=== PATIENT | female | born 1940 | race Asian ===

== ENCOUNTER 2018-08-09 06:27 | Day surgery (SDC) | payer MEDICARE, MEDICAID ==
[2018-08-09] MEDS ORDERED: diphenhydrAMINE 50 MG/1 ML VIAL MC ONE (06:28)
[2018-08-09] MEDS ORDERED: IV NORMAL SALINE 1000 ML BAG IV ONE (06:28)
[2018-08-09] MEDS ORDERED: ONDANSETRON 4 MG/2 ML VIAL IV ONE (06:28)
[2018-08-09] MEDS ORDERED: TROPICAMIDE 1% OPHT DROP 3 ML BOTTLE ONE (06:40)
[2018-08-09] MEDS ORDERED: CYCLOPENTOLATE 1% OPHT DROP 2 ML BOTTLE ONE (06:40)
[2018-08-09] MEDS ORDERED: KETOROLAC 0.5% OPHT DROP 3 ML BOTTLE ONE (06:41)
[2018-08-09] MEDS ORDERED: PHENYLEPHRINE 2.5% OPHT DROP 2 ML BOTTLE ONE (06:41)
[2018-08-09] MEDS ORDERED: MOXIFLOXACIN HCL 3 ML OPHT DROPS ONE ×2 (06:42→07:11)
[2018-08-09] MEDS ORDERED: BALANCED SALT IRRIG SOLN COMB1 500 ML, EPINEPHRINE-PF 1:1000 0.5 MG IO ONE ×2 (07:00)
[2018-08-09] MEDS ORDERED: TIMOLOL MALEATE 0.5% OPHT DROP 5 ML BOTTLE ONE (07:12)
[2018-08-09] MEDS ORDERED: LIDOCAINE-MPF 2% 5 ML VIAL ONE (07:12)
[2018-08-09] MEDS ORDERED: BALANCED SALT IRRIG SOLN COMB2 15 ML IRRIG.SOLN ONE (07:12)
[2018-08-09] MEDS ORDERED: TETRACAINE HCL 0.5% OPHT DROP 2 ML BOTTLE ONE (07:12)
[2018-08-09] MEDS ORDERED: NEO/POLYMYX B/DEXAME OPHT OINT 3.5 GM TUBE ONE (07:12)
[2018-08-09] MEDS ORDERED: BUPIVACAINE PF 0.5% 30 ML VIAL ONE (07:13)
[2018-08-09] MEDS ORDERED: HYALURONATE SODIUM 8.5 MG/0.85 ML DISP.SYRIN ONE (07:13)
[2018-08-09] MEDS ORDERED: HYALURONATE SODIUM 12.8 MG/0.8 ML DISP.SYRIN ONE (07:13)
[2018-08-09] MEDS ORDERED: ACETYLCHOLINE CHLORIDE 1% OPHT 1 EA KIT ONE (07:13)
[2018-08-09] MEDS ORDERED: HYALURONIDASE,OVINE 200 UNITS/ML VIAL ONE (07:13)
[2018-08-09] MEDS ORDERED: FENTANYL CITRATE 100 MCG/2 ML AMPUL ONE (07:58)
[2018-08-09] MEDS ORDERED: SUCCINYLCHOLINE CHLORIDE 200 MG/10 ML VIAL ONE (07:58)
[2018-08-09] MEDS ORDERED: BALANCED SALT IRRIG SOLN COMB1 500 ML ONE (08:32)
== END 2018-08-09 10:10 | disposition home or self-care (01) ==
LOC: DS 06:27
PROVIDERS: ATTEND Ophthalmology
DX: H25.11 Age-related nuclear cataract, right eye (principal); E78.5 Hyperlipidemia, unspecified; I10 Essential (primary) hypertension; E11.9 Type 2 diabetes mellitus without complications; M81.0 Age-related osteoporosis without current pathological fracture; F15.90 Other stimulant use, unspecified, uncomplicated; J45.909 Unspecified asthma, uncomplicated; Z88.5 Allergy status to narcotic agent; Z98.890 Other specified postprocedural states; Z79.4 Long term (current) use of insulin; Z79.899 Other long term (current) drug therapy; Z85.3 Personal history of malignant neoplasm of breast
CPT/HCPCS: 71045; A4663; J0171; J0330; J1200; J2405; J3010; J3471; J3490; J7030; J7321; V2632